=== PATIENT | male | born 1950 | race Caucasian/White ===

== ENCOUNTER 2019-07-29 15:51 | Inpatient (IN) | payer OTHER, MEDICARE ==
[~2019-07-29] VITALS: Ht 177.8 cm; Wt 84.8 kg
[2019-07-29 16:12] LABS: BASOPHILS ABSOLUTE AUTO 0.06 K/mm3 (0.00-0.23); BASOPHILS PERCENT AUTO 1 % (0-2); EOSINOPHILS ABSOLUTE AUTO 0.08 K/mm3 (0.00-0.68); EOSINOPHILS PERCENT AUTO 1 % (0-6); Hematocrit 38.9 % (37.0-53.0); Hemoglobin 12.8 g/dL (13.5-17.5); IMMATURE GRAN ABSOLUTE AUTO 0.02 K/mm3 (0.00-0.10); IMMATURE GRAN PERCENT AUTO 0 % (0-1); LYMPHOCYTES PERCENT AUTO 15 % (21-46); MONOCYTES ABSOLUTE AUTO 0.64 K/mm3 (0.16-1.47); MONOCYTES PERCENT AUTO 6 % (4-13); Mean Corpuscular HGB 28.1 pg (26.0-34.0); Mean Corpuscular HGB Conc 32.9 g/dL (31.5-36.5); Mean Corpuscular Volume 86 fL (80-100); Mean Platelet Volume 10.6 fL (9.1-12.4); NEUTROPHILS ABSOLUTE AUTO 8.22 K/mm3 (1.96-9.15); NEUTROPHILS PERCENT AUTO 77 % (41-73); Platelet Count 231 K/mm3 (150-400); RDW Coefficient Variation 13.1 % (11.7-14.2); RDW Standard Deviation 40.6 fL (35.1-46.3); Red Blood Cell Count 4.55 M/mm3 (4.30-5.90); White Blood Cell Count 10.62 K/mm3 (4.00-11.30)
[2019-07-29 16:32] LABS: Alanine Aminotransfer (ALT/SGP 44 U/L (12-78); Albumin, Blood 3.4 g/dL (3.4-5.0); Albumin/Globulin Ratio 1.1 (0.8-1.8); Alk Phos 67 U/L (50-136); Anion Gap 8 mmol/L (6-16); Aspartate Aminotrans (AST/SGOT 21 U/L (12-37); Bilirubin, Total 0.4 mg/dL (0.1-1.0); Blood Urea Nitrogen 30 mg/dL (8-24); Bun/Creatinine Ratio 23.8 (12.0-20.0); CO2, Blood 21 mmol/L (21-32); Calcium, Blood 8.1 mg/dL (8.5-10.1); Chloride, Blood 107 mmol/L (98-108); Creatinine, Blood 1.26 mg/dL (0.60-1.20); Globulin, Blood 3.2 g/dL (2.2-4.0); Glomerular Filtration Rate >60 (60-); Glucose, Blood 206 mg/dL (70-99); Potassium, Blood 4.9 mmol/L (3.5-5.5); Sodium, Blood 136 mmol/L (136-145); Total Protein, Blood 6.6 g/dL (6.4-8.2); Troponin I 0.213 ng/mL (0.000-0.040)
[2019-07-29] MEDS ORDERED: LISINOPRIL2.5 MG PO (16:52)
[2019-07-29] MEDS ORDERED: Metformin HCl1000 MG PO (16:52)
[2019-07-29] MEDS ORDERED: ATOR10 PO (16:52)
[2019-07-29] MEDS ORDERED: B-121000 MC3 PO (16:53)
[2019-07-29] MEDS ORDERED: Aspir 8181 MG PO (17:11)
[2019-07-29] MEDS ORDERED: CARV3.125 PO (17:12)
[2019-07-29] MEDS ORDERED: MAGNESIUM OXID500 MG PO (17:13)
[2019-07-29] MEDS ORDERED: NITR.4SL SL (17:13)
[2019-07-29] MEDS ORDERED: TRAM50 PO (17:14)
[2019-07-29] MEDS ORDERED: Vitamin D2000 UNIT PO (17:50)
[2019-07-29] MEDS ORDERED: ERGO50000 PO (20:22)
[2019-07-29] MEDS ORDERED: ALBU90OI INH (20:23)
[2019-07-29] MEDS ORDERED: GUAI600T33 PO (20:30)
--- NOTE | 2019-07-29 21:00 | NUR ---
Pt arrival to PCU Pt arrives via gurney with ED RN at bedside. Pt slide with slider sheet to PCU bed Pt alert and oriented, conversing appropriately with staff. VSS; tachycardic with aflutter RVR HR 120-130 via tele. RA. Able to move all extremities independantly. Pt is an appropriate historian, recalling information with ease. See admission assessment for detailed systems assessment. Heprin infusing upon arrival at 22.4 mls/hr per order. NS started at 100mls/hr per orders. Pt complains of constant 2/10 chest pain "it's always there" pt states. No acute concerns by pt at this time. No apparent sign of distress. Pt able to void independantly into urinal at bedside. UA sent. Will continue to monitor. uses call light to make needs known. Bed alarm on.
[2019-07-29 21:58] LABS: Source, Urine Clean Catch
[2019-07-29 22:06] LABS: Bilirubin, Urine Neg (Neg); Blood, Urine Neg (Neg); Glucose Qualitative, Urine 3+ (Neg); Ketones, Urine 2+ (Neg); Leukocyte Esterase, Urine Neg (Neg); Nitrite, Urine Neg (Neg); Protein, Urine 2+ (Neg); Specific Gravity, Urine 1.025 (1.003-1.022); Urobilinogen, Urine NORM (Normal)
[2019-07-29 22:17] LABS: Appearance, Urine Clear (Clear); Color, Urine Yellow (P-Yellow)
[2019-07-29 22:18] LABS: White Blood Cells, Urine Rare /hpf (0-5)
[2019-07-29 22:19] LABS: Amorphous Light (0-Heavy); Bacteria Rare /hpf; Mucus Light (0-Heavy); Red Blood Cells, Urine Not Seen /hpf (0-2); Squamous Epithelial Cells Few /hpf (Few)
--- NOTE | 2019-07-29 22:30 | NUR ---
ACUTE CHANGE Pt in room not responsive to verbal stim, requires sternal rub to open eyes. Pt states "chest pain" but unable to respond to additional questions. Pt unable to follow commands such as "open your eyes". Pt not responding verbally. Cool to touch, increased SOB, no change in rate or rhythm per tele. fuller brush worker in room, Nursing incinerator plant general supervisor in room. EKG obtained showing aflutter at 123bpm Provider called and provided with update on acute change to mentation, chest pain, and symptoms. Orders for Nitro recieved from provider. Nitro given sublingual per orders and no improvement noted by pt, sx remains.
--- NOTE | 2019-07-29 22:40 | NUR ---
Dr De La Fuente at bedside, pt without resolution of sx, remains lethargic and with altered mentation. Pt not able to follow commands or be involved in conversation. Pt not answering questions. Pt presents diaphoretic, cool to touch, tachypneic, and with eyes closed while provider at bedside. [place] ordered PO but pt too lethargic to safely swallow; provider orders IV lopressor to be given once BP improves. No new orders recieved at this time. MD aware of pt condition. Will continue to monitor.
--- NOTE | 2019-07-29 23:15 | NUR ---
Pt with no improvement of symptoms, remains lethargic with altered mental status. PCU topper packer aware, ICU topper packer aware. Cardiology consulted at admission and pt is to be seen 07/30/2019 in AM per answering service. Barrel Polisher Inside control board operator, Dr. Reina, called and made aware of pt symptoms, changes, and presentation. Orders for Lopressor to be given IV with SBP >[address] Reina.
[2019-07-29 23:38] LABS: Base Excess Venous -6.2 mmol/L; Bicarbonate Venous 19.9 mmol/L (24.0-30.0); PCO2 Venous 36.8 mmHg (38-42); PO2 Venous 110 mmHg (38-42); pH Blood Venous 7.34 (7.34-7.37)
[2019-07-30 00:04] LABS: U Amphetamine Screen Not Detected; U Barbituate Screen Not Detected; U Benzodiazapine Screen Not Detected; U Buprenorphine Screen Not Detected; U Cannabinoids Screen Not Detected; U Cocaine Screen Not Detected; U Methadone Screen Not Detected; U Methamphetamine Screen Not Detected; U Opiates Screen Not Detected; U Oxycodone Screen Not Detected; U Phencyclidine Screen Not Detected; U Propoxyphene Screen Not Detected
--- NOTE | 2019-07-30 00:13 | NUR ---
Pt mentation improved, alert and oriented, answering questions, following commands. Regarding previous event, Pt states "I felt drunk. it happened so quickly and my chest hurt". Will continue to monitor.
--- NOTE | 2019-07-30 00:55 | NUR ---
LLL crackles presents, pt complains of continues SOB. fluids on standby at this time.
--- NOTE | 2019-07-30 01:17 | NUR ---
This RN at bedside with pt, pt alert and conversing appropriately with this RN. Pt states "I think it's happening again". Pt suddenly with altered mental status, slumpted in bed and minimally responsive. Pt able to state "my head hurts" and denies active chest pain at this time. Pt cool to touch, increases diaphoresis. VS obtained, no acute changes. Neuro assessment attempted but pt unable to participate. Attempted to assess pupils, unable to obtain at this time. Pt with increased SOB, increased work of breathing, accessory muscle use. Provider called, awaiting call back at this time.
--- NOTE | 2019-07-30 02:01 | NUR ---
RT at bedside with this RN. Bilateral crackles assessed by both this RN and RT. Pt with obvious increased work of breathing, tachypnea, SOB. Pt only able to speak one to two words with each shallow breath. CPAP to be placed by RT. Provider called to give update on respiratory status
--- NOTE | 2019-07-30 03:18 | NUR ---
at approx 0300, pt converted to SVT with rates 140-150, SOB, pt attempting to void but unable to intiate urine. Bladder scan shows 222mls. Provider called to update and request for orders. awaiting call back at this time.
--- NOTE | 2019-07-30 04:15 | NUR ---
[facility] called requesting medical records to be fax[facility] to PCU.
--- NOTE | 2019-07-30 05:58 | NUR ---
Pt with CP 10/18, requesting Nitro. VSS. HR between 95-100 via tele. 0.4 sublingual nitro given per orders. Pt is alert and oriented at this time.
--- NOTE | 2019-07-30 06:17 | NUR ---
Pt HR at 100 bpm, pt resting on left side, stating CP 1/10. Breathing remains tachypneic at 21-24 breaths per minute, less labored than earlier in shift. Will continue to monitor
--- NOTE | 2019-07-30 08:09 | NUR ---
ECHOCARDIOGRAM COMPLETE
[2019-07-30 08:23] LABS: BASOPHILS ABSOLUTE AUTO 0.03 K/mm3 (0.00-0.23); BASOPHILS PERCENT AUTO 0 % (0-2); EOSINOPHILS ABSOLUTE AUTO 0.02 K/mm3 (0.00-0.68); EOSINOPHILS PERCENT AUTO 0 % (0-6); Hematocrit 43.4 % (37.0-53.0); Hemoglobin 14.3 g/dL (13.5-17.5); IMMATURE GRAN ABSOLUTE AUTO 0.06 K/mm3 (0.00-0.10); IMMATURE GRAN PERCENT AUTO 0 % (0-1); LYMPHOCYTES ABSOLUTE AUTO 1.57 K/mm3 (0.84-5.20); LYMPHOCYTES PERCENT AUTO 11 % (21-46); MONOCYTES ABSOLUTE AUTO 0.97 K/mm3 (0.16-1.47); MONOCYTES PERCENT AUTO 7 % (4-13); Mean Corpuscular HGB 28.2 pg (26.0-34.0); Mean Corpuscular HGB Conc 32.9 g/dL (31.5-36.5); Mean Corpuscular Volume 86 fL (80-100); Mean Platelet Volume 10.5 fL (9.1-12.4); NEUTROPHILS ABSOLUTE AUTO 12.32 K/mm3 (1.96-9.15); NEUTROPHILS PERCENT AUTO 82 % (41-73); Platelet Count 282 K/mm3 (150-400); RDW Coefficient Variation 13.4 % (11.7-14.2); RDW Standard Deviation 41.4 fL (35.1-46.3); Red Blood Cell Count 5.07 M/mm3 (4.30-5.90); White Blood Cell Count 14.97 K/mm3 (4.00-11.30)
[2019-07-30 08:43] LABS: International Normalized Ratio 1.02; Prothrombin Time Results 10.9 Sec (9.7-11.5)
[2019-07-30 08:51] LABS: Bun/Creatinine Ratio 21.9 (12.0-20.0); Calcium, Blood 8.8 mg/dL (8.5-10.1); Creatinine, Blood 1.28 mg/dL (0.60-1.20); Potassium, Blood 4.6 mmol/L (3.5-5.5)
[2019-07-30 09:00] LABS: Thyroid Stimulating Hormone 2.19 uIU/mL (0.360-4.800)
[2019-07-30 09:10] LABS: Troponin I 0.613 ng/mL (0.000-0.040)
--- NOTE | 2019-07-30 13:13 | NUR ---
[facility] care visit conducted. Upon receiving an admit referral, I visit patient. I explain the importance and process of the advance directive. Patient asks for the advance directive form, I hand it to him along with instructions on the sections of the booklet and how to file. Patient thanks me and tells me that he will fill it out with his and hand it in at the hospital. I also talk with patient about his medical issues and his spiritual life. 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 I listen emapthically, and provide presurgical prayer. Patient responds well and voices appreciation for the visit. I will continue to remain available to patient and family.
--- NOTE | 2019-07-30 13:20 | NUR ---
UPDATE [facility] TAK[facility]. WILL AWAIT RETURN
--- NOTE | 2019-07-30 15:08 | NUR ---
PT RETURNED FROM GENERAL PURCHASING AGENT. VS STABLE. RIGHT RADIAL SITE WITH TR BAND. NO BLEEDING OR HEMATOMA NOTED. WILL CONTINUE TO MONITOR CLOSELY.
--- NOTE | 2019-07-30 18:02 | NUR ---
SHIFT SUMMARY PT ALERT AND ORIENTED. HR AFLUTTER RATE RANGING FROM 100-120. BP STABLE. PT HAS CARDIAC CATH THIS AFTERNOON AND IS AWAITING COBRA TRANSFER TO [facility]. PT HAS BEEN ON RA ALL SHIFT WITH SATS REMAINING ABOVE 90% UNTIL APPROXIMATELY 1740 WHEN PT BECOMES SHORT OF BREATH WITH SATS IN THE MID 80'S. PT PLACE DONE ON . DR. DELEON CALLED AND NEW ORDERS FOR IV LASIX. LASIX GIVEN ALONG WITH BREATHING TX PER RT. PT REPORTS IMPROVED BREATHING. RESPIRATIONS HAVE COME BACK TO WNL. RIGHT RADIAL SITE FREE FROM BLEEDING OR HEMATOMA. 4ML OF AIR HAS BEEN REMOVED FROM TR BAND AT THIS TIME. WILL CONTINUE TO MONITOR CLOSELY AND REPORT TO ONCOMING RN.
--- NOTE | 2019-07-30 19:30 | NUR ---
Pt transport to [facility] Pt alert and oriented, conversing appropriately with staff, breathing even and unlabored on 5L NC, respirations between 18-22. TR band in place, arm board in place, fully recovered at 1850. Site is free from hematoma or bleed, dried blood is present on TR band. pt compliant with R arm restriction. R venous brachial site covered with sabi dressing, dried blood present. Pt able to SBA to EMS [facility]. Involved and participating in care and in report. Pt denies systemic pain, denies chest pain or pressure. Voiding independantly in urinal. Pt with faint bilat pedal pulses, strong radial pulses. Aflutter in 115-125 on tele, denies SOB. Report given to EMS at arrival. All patient belongings with pt at time of transfer. Report called to Ann from [facility], pt to go to CCU 12. MARK Juarez provided with PCU phone number if further questions arise.
== END 2019-07-30 19:33 | disposition short-term general hospital (02) | DRG 281 ==
LOC: ER 15:51 → PCU 17:59 → ERHOLD 17:59 → PCU 20:11
PROVIDERS: Emergency Medicine; ADMIT Internal Medicine
PROC: 4A023N6 Measurement of Cardiac Sampling and Pressure, Right Heart, Percutaneous Approach (ICD-10-PCS; principal; 2019-07-30)
PROC: B2111ZZ Fluoroscopy of Multiple Coronary Arteries using Low Osmolar Contrast (ICD-10-PCS; 2019-07-30)
DX: I21.4 Non-ST elevation (NSTEMI) myocardial infarction (principal); I48.92 Unspecified atrial flutter; J44.9 Chronic obstructive pulmonary disease, unspecified; I35.0 Nonrheumatic aortic (valve) stenosis; Z87.891 Personal history of nicotine dependence; Z68.27 Body mass index [BMI] 27.0-27.9, adult; E66.01 Morbid (severe) obesity due to excess calories; G47.33 Obstructive sleep apnea (adult) (pediatric); E11.42 Type 2 diabetes mellitus with diabetic polyneuropathy; I25.10 Atherosclerotic heart disease of native coronary artery without angina pectoris; Z79.82 Long term (current) use of aspirin; Z79.84 Long term (current) use of oral hypoglycemic drugs
CPT/HCPCS: 36415; 71046; 80048; 80053; 81001; 82803; 82947; 83735; 83880; 84443; 84484; 85025; 85379; 85610; 85730; 86850; 86900; 86901; 87070; 87205; 93005; 93010; 93306; 93456; 94640; 94760; 99152; 99285-25; C1769; C1894; J1644; J1940; J2250; J3010; J7030; J7040; Q9967